=== PATIENT | female | born 1960 | race African-American/Black ===

== ENCOUNTER 2019-01-12 07:56 | Inpatient (IN) | payer BC ==
[~2019-01-12 07:56] MED LIST: ACETAMINOPHEN 500 MG TABLET PO ONE; CEFAZOLIN 1 Gram 1 GM/50 ML BAG IVPB ONE; CEFAZOLIN 2 Gram 2 GM/50 ML BAG IVPB ONE; CELECOXIB 100 MG CAPSULE PO ONE; FAMOTIDINE 20MG TABLET PO ONE; METOCLOPRAMIDE 10 MG TABLET PO ONE; SCOPOLAMINE 1 PATCH TDSY TD ONE; VANCOMYCIN 1GM/200ML PREMIX 1 GM/200 ML PIGGYBACK IVPB ONE
[2019-01-12 08:57] LABS: ABO GROUP O; ANTIBODY SCREEN NEGATIVE (NEGATIVE); RH TYPE POSITIVE
[2019-01-12] MEDS ORDERED: RINGERS SOLUTION,LACTATED 1,000 ML IV ONE ×2 (09:00→11:00)
[2019-01-12] MEDS ORDERED: ACETAMINOPHEN W/ CODEINE 300MG/60MG TABLET PO PRN ×2 (09:58)
[2019-01-12] MEDS ORDERED: ZOLPIDEM TARTRATE 5 MG TABLET PO PRN (09:58)
[2019-01-12] MEDS ORDERED: HYDROCODONE/APAP 7.5/325MG TABLET PO PRN (09:58)
[2019-01-12] MEDS ORDERED: MAGNESIUM HYDROXIDE 30 ML UDC PO PRN (09:58)
[2019-01-12] MEDS ORDERED: METOCLOPRAMIDE HCL 10 MG/2 ML VIAL IVP PRN (09:58)
[2019-01-12] MEDS ORDERED: HYDROCODONE/APAP 5/325MG TABLET PO PRN (09:58)
[2019-01-12] MEDS ORDERED: AL HYDROX/MAG HYDROX 30ML UD PO PRN (09:58)
[2019-01-12] MEDS ORDERED: ONDANSETRON HCL IV 4 MG/2 ML VIAL IVP PRN (09:58)
[2019-01-12] MEDS ORDERED: HYDROMORPHONE HCL 2 MG/ML VIAL IM PRN ×2 (09:58)
[2019-01-12] MEDS ORDERED: PROMETHAZINE HCL 12.5 MG in 0.9 % SODIUM CHLORIDE 100ML 50 ML IVPB PRN (09:58)
[2019-01-12] MEDS ORDERED: DIPHENHYDRAMINE HCL 25 MG CAPSULE PO PRN (09:58)
[2019-01-12] MEDS ORDERED: ACETAMINOPHEN W/ CODEINE 300MG/30MG TABLET PO PRN ×2 (09:58)
[2019-01-12] MEDS ORDERED: KETOROLAC 30 MG/ML VIAL IVP PRN ×2 (09:58)
[2019-01-12] MEDS ORDERED: TRAMADOL HCL 50 MG TABLET PO PRN ×2 (09:58)
[2019-01-12] MEDS ORDERED: BISACODYL 10 MG SUPP RC PRN (09:58)
[2019-01-12] MEDS ORDERED: ACETAMINOPHEN 325 MG TAB PO PRN (09:58)
[2019-01-12] MEDS ORDERED: NALOXONE 0.4 MG/1 ML VIAL IVP PRN (09:58)
[2019-01-12] MEDS ORDERED: BUPIVACAINE LIPOSOME 266MG/20ML VIAL SQ ONE (10:33)
[2019-01-12] MEDS ORDERED: VANCOMYCIN HCL 3,000 MG in RINGERS SOLUTION,LACTATED 3,000 ML IVPB ONE (10:33)
[2019-01-12] MEDS ORDERED: BUPIVACAINE 0.5% W/EPI MPF 30 ML VIAL SQ ONE (10:33)
[2019-01-12] MEDS ORDERED: DEXTROSE 5 % AND 0.9 % NACL 1,000 ML IV PRN (12:30)
[2019-01-12] MEDS: DOCUSATE SODIUM 100 MG CAPSULE PO SCH ×2 (13:45→21:13)
[2019-01-12] MEDS: FERROUS SULFATE 325 MG TAB PO SCH ×2 (13:47→21:13)
[2019-01-12] MEDS ORDERED: CYCLOBENZAPRINE 10MG TABLET PO PRN (13:56)
[2019-01-12] MEDS ORDERED: DEXAMETHASONE 4 MG/ML 1ML VIAL IVP ONE (14:00)
[2019-01-12] MEDS ORDERED: ROPIVACAINE HCL (NAROPIN) /PF 5MG/ML 20ML VIAL IV ONE (14:00)
[2019-01-12] MEDS: HYDROCODONE/APAP 5/325MG TABLET PO PRN (14:25)
[2019-01-12] MEDS: AMLODIPINE BESYLATE 5MG TAB PO SCH (14:26)
[2019-01-12] MEDS ORDERED: TRANEXAMIC ACID 1,000 MG/10 ML ML IV ONE (15:54)
--- NOTE | 2019-01-12 16:55 | Rehab Evaluation ---
Patient Information - Patient Information Diagnosis: R knee DJD Ordered Treatment: PT Evaluate and Treat Status: Initial Evaluation Surgery: Yes (R knee TKA) Date of Surgery: 01/12/19 Past Medical/Surgical Hx: PAST MEDICAL/SURGICAL HISTORY Past Surgical History RIGHT KNEE SCOPE C SCOPE PARTIAL HYST PMH - Respiratory Hx Respiratory Disorders Yes Hx Bronchitis Yes: YRS AGO PMH - Cardiovascular Hx Cardiovascular Disorders Yes Hx Edema Yes: BILAT FEET AND ANKLES Hx Hypertension Yes: GOOD CONTROL WITH MEDS Exercise Tolerance Good PMH - Neuro Hx Neurological Disorders No PMH - GI Hx Gastrointestinal Disorders Yes Hx Gastroesophageal Reflux Yes: AT TIMES PMH - Hx Genitourinary Disorders No Comment: S/P HYST PMH - Endocrine Hx Endocrine Disorders No PMH - Musculoskeletal Hx Musculoskeletal Disorders Yes Hx Arthritis Yes: KNEES AND SPINE PMH - Psych Hx Psychiatric Problems Yes Hx Anxiety Yes: ANXIOUS REGARDING SX PMH - Hematology/Oncology Hx Hematology/Oncology Yes Disorders Hx Blood Transfusion Reaction No Premorbid Status: Detail (The patient was independent with all mobility prior to surgery.) Social History: Detail (The dottie lives with spouse in a one story house with 2 steps and no handrails at the enterance. The bathroom is equipped with a walk in shower and a standard toilet. The patient has aquired a riser seat with handles. No grab bars are present in the bathroom.The patient has a walker with wheels.) Precautions: [place], Fall, Other (WBAT R LE) - Time With Patient Total Time Spent With Patient (Min): 30 Treatment Procedures: Detail (Initial Evaluation, gait training) Subjective Information - Subjective Information Per Patient (The patient had complaints of R knee pain but did not rate her pain using 0-10 pain scale.) Objective Data - Mental Status Patient Orientation: Oriented x3 - Visual Perception Appears within normal limits for therapeutic activities - ROM Not within normal limits (The patient's R knee is limited s/p surgery. All other LE AROM is WNL.) - Strength/Tone Not within normal limits (The patient's R LE strength was not tested s/p surgery but was functional ie: patient was able to ambulate and weight bear. The patient's L LE strength was WFL.) - Bed Mobility Independent (The patient was independent with sit to supine transfer and scooting up in bed.) - Transfers Independent (The patient was independent with sit to and from stand transfer.) - Balance Balance Sitting: Good Balance Standing: Good - Sensation Intact - Gait Detail (The patient ambulated with front wheeled walker WBAT on the R LE with supervision for safety a distance of 35 feet x 1. The patient exhibted shortness of breath after ambulating.) Therapy Assessment - Therapy Assessment Detail (The patient was independent with sit to stand transfer and bed mobility. Patient ambulated limited distance due to pain complaints. Feel the patient will progress well with mobility.) Problem List - Problem List Physical Therapy Problem List: Detail (1) Decreased R knee AROM 2) Decreased R LE strength) Goals - Goals Physical Therapy Goals: 1) The patient will be independent with TKA HEP. 2) The patient will ambulate with appropriate assistive device household distances WBAT on the R LE independently. 3) The patient will ambulate on stairs using proper technique with supervision for safety. Plan - Plan Physical Therapy Plan: PT for 1-2 sessions for gait training on levels and stairs, transfer training and instruction in HEP.
[2019-01-12] MEDS: VANCOMYCIN 1GM/200ML PREMIX 1 GM/200 ML PIGGYBACK IVPB SCH (20:36)
[2019-01-12] MEDS: HYDROCODONE/APAP 7.5/325MG TABLET PO PRN (20:44)
[2019-01-12] MEDS ORDERED: ATORVASTATIN 20 MG TABLET PO SCH (22:00)
[2019-01-13] MEDS: HYDROCODONE/APAP 7.5/325MG TABLET PO PRN ×2 (02:13→08:19)
[2019-01-13 06:41] LABS: HEMATOCRIT 35.9 % (35.0-47.0); HEMOGLOBIN 11.2 gm/dl (11.6-16.0)
[2019-01-13] MEDS: VANCOMYCIN 1GM/200ML PREMIX 1 GM/200 ML PIGGYBACK IVPB SCH (08:19)
--- NOTE | 2019-01-13 09:35 | Physical Therapy Tx Note ---
Physical Therapy Tx Note - Treatment Note Tolerated: Good Total Time Spent With Patient: 30 Physical Therapy Tx Note: Detail (The patient had complaints of R knee pain during ambulation but did not rate her pain using the 0-10 pain scale. The patient was independent with supine to and from sit transfer. The patient was independent with sit to and from stand transfer. The patient ambulated with front wheeled walker WBAT on the R LE a distance of 95 feet x 1 independently. The patient also ambulated on 3 steps with supervision for safety only with folded walker and railing using proper technique. The patient also complete TKA exercises including : seated and supine heel slides, ankle pumps, gluteal sets,quad sets, hamstring sets, SLR. The patient has met all inpatient PT goals and is discharged from inpatient PT.) Physical Therapy Problem List: Detail (1) Decreased R knee AROM 2) Decreased R LE strength) Physical Therapy Goals: 1) The patient will be independent with TKA HEP.(Goal Met). 2) The patient will ambulate with appropriate assistive device household distances WBAT on the R LE independently.(Goal Met). 3) The patient will ambulate on stairs using proper technique with supervision for safety. (Goal Met) Physical Therapy Plan: The patient has met all inpatient PT goals and is discharged from inpatient PT. The patient is to continue with Home PT.
[2019-01-13] MEDS ORDERED: RIVAROXABAN 10 MG TABLET PO SCH (10:00)
[2019-01-13] MEDS ORDERED: HYDROCHLOROTHIAZIDE 25 MG TABLET PO SCH (10:00)
[2019-01-13] MEDS ORDERED: CELECOXIB 100 MG CAPSULE PO SCH (10:00)
--- NOTE | 2019-01-13 10:27 | Rehab Evaluation ---
Patient Information - Patient Information Diagnosis: R knee DJD Ordered Treatment: OT Evaluate and Treat Status: Initial Evaluation Surgery: Yes (R knee TKA) Date of Surgery: 01/12/19 Past Medical/Surgical Hx: PAST MEDICAL/SURGICAL HISTORY Past Surgical History RIGHT KNEE SCOPE C SCOPE PARTIAL HYST PMH - Respiratory Hx Respiratory Disorders Yes Hx Bronchitis Yes: YRS AGO PMH - Cardiovascular Hx Cardiovascular Disorders Yes Hx Edema Yes: BILAT FEET AND ANKLES Hx Hypertension Yes: GOOD CONTROL WITH MEDS Exercise Tolerance Good PMH - Neuro Hx Neurological Disorders No PMH - GI Hx Gastrointestinal Disorders Yes Hx Gastroesophageal Reflux Yes: AT TIMES PMH - Hx Genitourinary Disorders No Comment: S/P HYST PMH - Endocrine Hx Endocrine Disorders No PMH - Musculoskeletal Hx Musculoskeletal Disorders Yes Hx Arthritis Yes: KNEES AND SPINE PMH - Psych Hx Psychiatric Problems Yes Hx Anxiety Yes: ANXIOUS REGARDING SX PMH - Hematology/Oncology Hx Hematology/Oncology Yes Disorders Hx Blood Transfusion Reaction No Premorbid Status: Detail (The patient was independent with all ADLs and mobility prior to surgery, working and driving.) Social History: Detail (The patient lives with spouse in a one story house with 2 steps and no handrails at the entrance. The bathroom is equipped with a tub/shower combination with a grab bar and a standard toilet. Pt recently acquired a bedside commode with handles to place over the toilet. No grab bars are present in the bathroom.The patient has a front wheeled walker.) Precautions: [place], Fall, Other (WBAT R LE) - Time With Patient Total Time Spent With Patient (Min): 23 (1 Eval, 1 ADL) Treatment Procedures: Detail (OT eval: low complexity) Subjective Information - Subjective Information Per Patient (Ok to see per HARLEY Dey. Pt agreeable to OT eval and Tx, spouse present at end of session.) Objective Data - Pain Pain Present: Yes (10/29 R knee) - Mental Status Patient Orientation: Oriented x3 - Visual Perception Appears within normal limits for therapeutic activities - ROM Within normal limits (B UEs) - Strength/Tone Within normal limits (B UEs) - Coordination Appears within normal limits for therapeutic activities - Bed Mobility Independent (supine >< EOB, Pt demos ability to elevate R LE to/from bed) - Transfers Independent (EOB >< BSC over toilet with FWW with good safety awareness) - Balance Balance Sitting: Good Balance Standing: Good (Good-) - Sensation Intact - Gait Detail - ADL's/IADL's Detail (OT educated Pt on use of sock aide and skiagrapher to don/doff R sock as Pt unable to reach foot at this time. Pt demos good follow through with use of AE and modified technique for LB dressing post demo and verbal instruction, declines purchase of AE at this time but knows where to purchase if needed later. OT instructed Pt on home modifications for safety and resources to acquire shower chair and shower grab bar per Pt request. Also educ. on how to raise her new bedside commode for over-toilet use. Pt verbalizes understand re: functional TF training for tub/shower, toilet, and car, as well as general home safety.) Therapy Assessment - Therapy Assessment Detail (Pt demos good safety and independence with ADLs and functional TFs. Rec. home DC with spouse assist PRN when medically ready.) Patient Education - Patient Education Teaching Topic: Equipment Use Response: Return Demonstration, Verbalize Understanding Teaching Method: Discussion, Demonstration Teaching Recipient: Patient, Significant Other Barriers To Learning: None Problem List - Problem List Physical Therapy Problem List: Detail (1) Decreased R knee AROM 2) Decreased R LE strength) Occupational Therapy Problem List: Detail (No further IP OT needs/goals identified.) Goals - Goals Physical Therapy Goals: 1) The patient will be independent with TKA HEP.(Goal Met). 2) The patient will ambulate with appropriate assistive device household distances WBAT on the R LE independently.(Goal Met). 3) The patient will ambulate on stairs using proper technique with supervision for safety. (Goal Met) Occupational Therapy Goals: No further IP OT needs/goals identified. Prognosis - Prognosis Good Plan - Plan Physical Therapy Plan: The patient has met all inpatient PT goals and is discharged from inpatient PT. The patient is to continue with Home PT. Occupational Therapy Plan: No further IP OT needs/goals identified. DC IP OT and rec DC home with spouse assist PRN when medically ready. Thank you for this referral.
[2019-01-13] MEDS: FERROUS SULFATE 325 MG TAB PO SCH (10:38)
[2019-01-13] MEDS: DOCUSATE SODIUM 100 MG CAPSULE PO SCH (10:38)
[2019-01-13] MEDS: AMLODIPINE BESYLATE 5MG TAB PO SCH (10:38)
[2019-01-13] MEDS: HYDROCODONE/APAP 5/325MG TABLET PO PRN (12:33)
--- NOTE | 2019-01-13 12:41 | Operative Note ---
DATE OF SURGERY: 01/12/2019 PREOPERATIVE DIAGNOSIS: End-stage right knee arthrosis. POSTOPERATIVE DIAGNOSIS: End-stage right knee arthrosis. OPERATION: Right total knee arthroplasty. SURGEON: Enrique Meléndez MD ANESTHESIA: Spinal. COMPLICATIONS: None. ESTIMATED BLOOD LOSS: Minimal. TOURNIQUET TIME: No tourniquet used. OPERATIVE FINDINGS: [id number] medial compartment arthrosis. COMPONENTS PLACED: A 2 g vancomycin cemented [employer] Journey II Oxinium size 7 femoral component, a size 6 tibial baseplate, a 9 mm thick tibial poly insert, and 35 mm cemented patellar component. INDICATIONS: This is a 58-year-old female with knee arthrosis. Failed nonoperative treatment. Scheduled for knee replacement. I explained all risks and benefits in detail for the diagnosis and procedure including but not limited to infection, nerve injury, vessel injury, persistent pain, stiffness, numbness, tingling in the knee, periprosthetic fracture, need for resection arthroplasty if components become infected or loosen, nerve injury, vessel injury, blood clot and need for further procedures. All her questions were answered. Rehab and healing course was outlined. She agreed to proceed. PROCEDURE: The patient brought to the OR, placed in the supine position, prepped for surgery. Spinal anesthesia induced. The right lower extremity and knee were prepped and draped in sterile fashion. Prepped again with Chloraprep after it was draped. Intraoperative timeout was performed. Next, the leg was exsanguinated with Esmarch. The knee was flexed. We did not inflate the tourniquet. Next, we performed an incision in flexion. Skin and subcutaneous tissue dissected down. We used Aquamantys in each layer of our approach to thoroughly cauterize all soft tissues. Next, incised the capsule medially along the medial border of the patella to the tibial tubercle. Incised the vastus medialis in line with its fibers in a mid vastus approach. Everted the patella. I partially resected the retropatellar fat pad, elevated the capsule subperiosteally and medially. Next, inspected the knee. There was [id number] medial compartment arthrosis. Drilled the intracondylar drill hole at 6 degree, inserted the intramedullary guide fer, the cutting block aligned off the distal femoral condyles, pinned it in +2 mm position, cut the distal femoral condyles. Next, we placed a sizing jig on the distal femoral condyle and sized it to be right on size 7. Through the previously-placed pin holes, we placed a size 7 cutting jig. We dialed the anterior cut so it would come out flush without notching. We cut that cut, and it was a good cut, and I pinned it, cut the remainder of the chamfer cuts in the usual fashion. Next, then placed a size trial 7 trial component, centered it, pinned it, removed osteophytes, inserted the resection collet, reamed out and box osteotomed out with the cruciate bone block. Next, attention was turned to the tibia. Exposed the tibia, resected the meniscus, remainder of the meniscus, ACL, and seated the external alignment jig with the spikes in the tubercular groove on tibial anatomic axis 2 fingerbreadths distal to the anterior tibial cortex and referenced for a 7 mm cut off the higher lateral plateau. We pinned the cutting jig provisionally with 2 anterior-posterior pins. We then rechecked alignment of the cutting jig using a drop fer centered on the tibial anatomic axis and then cross-pinned the cutting jig completing its fixation and then cut the tibia. Next, we removed osteophytes off the posterior femoral condyles. Checked the flexion/extension gaps. We had symmetric flexion/extension gaps with the 9 mm thick poly insert to allow for 1-2 mm of varus/valgus laxity in flexion/extension. Overall alignment cuts in extension, anatomic valgus orientation with alignment fer centered on the hip joint and ankle joint. Next, took the knee in flexion and sized the tibial baseplate to a size 6. We then set the rotation tibial baseplate extension, placed all trial components back in, and marked electrocautery thompson on the anterior tibial cortex baseplate off the laser thompson of the tibial baseplate. Next, attention was turned to the patella. We measured the patella, set the cutting jig to allow for a 9 mm thick poly insert and cut the patella. Remeasures were right on our measurement. Next, then mixed cement. We did a trial range of motion. The patella tracked nicely handsfree with full extension, flexion to 134 degrees giving 1-2 mm of varus/valgus laxity in flexion and extension. Symmetric flexion/extension gaps. Next, took the knee in flexion, exposed the tibia, seated the tibial baseplate off the previously placed electrocautery thompson, pinned it in place, and reamed out and keel punched the keel hole. Next, we changed gloves, put in a clean sheet. We placed the bone plug in the femoral canal hole. Placed the drill bit in the tibial keel hole, precoated both surfaces and packed down the tibial component first and the femoral component removing excess cement. Placed the trial tibial poly liner, held the knee in extension until the cement hardened. Distracted the knee with the bone hook and sponge and removed any excess cement into cement fragments. Injected our 0.5% Marcaine with epinephrine, tranexamic acid, and Exparel mixture deep capsule medial and lateral working out to the periosteum more superficially. Patellar tendon, quad tendon, and subcutaneous quadriceps areas. Next, we also used Aquamantys in the posterior capsule the second time for the cauterized area. Then inserted the real tibial poly insert and verified it was interlocked medially and laterally. We found our range of motion was still the same. We irrigated copiously, closed the knee in flexion with running #2 quill suture. Irrigated again and closed the skin with 2-0 Vicryl. Provisional dressing was applied and Acticoat. Will change to JL UIS dressing prior to discharge. The patient tolerated the procedure well. No intraoperative complications. Sponge, needle, and blade counts correct. Recovery room stable, neurovascular intact. Discharged likely tomorrow and follow up in 2 weeks. CC: Dr. Pema BLANK
[2019-01-13] MEDS ORDERED: KETAMINE HCL 100MG/1ML VIAL INJ ONE (12:44)
[2019-01-13] MEDS ORDERED: PROPOFOL 10 MG/ML VIAL IV ONE ×2 (12:44)
[2019-01-13] MEDS ORDERED: MIDAZOLAM HCL 2MG/2ML VIAL IV ONE ×2 (12:44)
[2019-01-13] MEDS ORDERED: LIDOCAINE 2% MDV (20MG/ML) 20ML VIAL IV ONE (12:44)
[2019-01-13] MEDS ORDERED: EPHEDRINE SULFATE 50 MG/ML ML IV ONE (12:44)
== END 2019-01-13 12:45 | disposition home health service (06) | DRG 470 ==
LOC: MEDSURG 07:56
PROVIDERS: ADMIT Orthopaedic Surgery; ATTEND Orthopaedic Surgery
PROC: 0SRC069 Replacement of Right Knee Joint with Oxidized Zirconium on Polyethylene Synthetic Substitute, Cemented, Open Approach (ICD-10-PCS; principal; 2019-01-12 10:00)
DX: M17.11 Unilateral primary osteoarthritis, right knee (principal); Z68.41 Body mass index [BMI] 40.0-44.9, adult; I10 Essential (primary) hypertension; E78.00 Pure hypercholesterolemia, unspecified
CPT/HCPCS: 36416; 76942; 82948; 85014; 85018; 86850; 86900; 86901; 97110; 97530; J1885; J3370; J3490; J7042; J7120